=== PATIENT | female | born 1955 | race Caucasian/White ===

== ENCOUNTER 2017-07-25 11:46 | Emergency (ER) | payer OTHER ==
[2017-07-25 12:05] VITALS: RESP 16; TEMP 98.4
[2017-07-25] MEDS ORDERED: NS 1,000 ML IV ONE (13:07)
--- NOTE | 2017-07-25 13:07 | EDPHY ---
H & P Stated Complaint: Constipation Time Seen by Provider: 07/25/17 13:07 HPI/ROS: CHIEF COMPLAINT: Chronic constipation HISTORY OF PRESENT ILLNESS: The patient presents to the ED with complaints of several months of chronic constipation. She endorses symptoms of indigestion and mild nausea. She has not had vomiting. She denies fever or dysuria. She reports her last colonoscopy was 3 years ago and demonstrated only polyps. The patient has been using Dulcolax, Senokot and enemas as an outpatient. The patient presents the emergency department today requesting management of her ongoing constipation. She reports a prior surgical history no worthy for appendectomy and cholecystectomy. She complains only of mild abdominal pain REVIEW OF SYSTEMS: A comprehensive 10 point review of systems is otherwise negative aside from elements mentioned in the history of present illness. Source: Patient - Personal History Current Tetanus Diphtheria and Acellular Pertussis (TDAP): Yes - Medical/Surgical History Hx Asthma: No Hx Chronic Respiratory Disease: No Hx Diabetes: No Hx Cardiac Disease: No Hx Renal Disease: No Hx Cirrhosis: No Hx Alcoholism: No Hx HIV/AIDS: No Hx Splenectomy or Spleen Trauma: No Other PMH: Previous blocked bowels. Polylateral neuropathy. DM 2. Hypothyroid. - Social History Smoking Status: Current every day smoker - Physical Exam Exam: General Appearance: Alert, no distress Eyes: Pupils equal and round no pallor or injection ENT, Mouth: Mucous membranes moist Respiratory: There are no retractions, lungs are clear to auscultation Cardiovascular: Regular rate and rhythm Gastrointestinal: Protuberant, slight distension, normal bowel sounds Neurological: A&O, normal motor function, normal sensory exam, normal cranial nerves Skin: Warm and dry, no rashes Musculoskeletal: Neck is supple nontender Extremities: symmetrical, full range of motion Constitutional: Initial Vital Signs Temperature (C) 36.9 C 07/25/17 12:01 Heart Rate 75 07/25/17 12:01 Respiratory Rate 16 07/25/17 12:01 Blood Pressure 182/98 H 07/25/17 12:01 O2 Sat (%) 97 07/25/17 12:01 O2 Delivery Mode Room Air Allergies/Adverse Reactions: No Known Allergies Allergy (Unverified 07/25/17 12:05) Home Medications: Medication Instructions Recorded Peg 3350/Na Sulf,Bicarb,Cl/KCl 4,000 ml PO ONCE #1 btl 07/25/17 [Golytely (RX)] Medical Decision Making - Diagnostics Imaging Results: Imaging Impressions Abdomen X-Ray 07/25/17 13:08 Impression: Constipation. No evidence of bowel obstruction or pneumoperitoneum. ED Course/Re-evaluation: The patient presents to the emergency department with chronic constipation. She has been using number of [id number] laxatives without improvement. The patient has no evidence of an acute abdomen. The patient is afebrile and in no acute distress. The patient's laboratory studies including CBC and serum chemistries reassuring. The patient underwent serial examinations in the ED. She has no clinical evidence of a perforation or obstruction. The patient will be discharged home with a prescription to take GoLYTELY for her constipation. She is advised to follow up with her primary care provider and paint roller covers supervisor for any ongoing symptoms. Patient is advised to return to the ED for markedly worsening symptoms, fever, vomiting or other concerns. Differential Diagnosis: Differential diagnosis considered includes constipation, obstruction, perforation, ileus, pancreatitis - Data Points Laboratory Results: Laboratory Results 07/25/17 13:44 07/25/17 13:44 07/25/17 07/25/17 13:44 13:44 WBC 6.99 10^3/uL 10^3/uL (3.80-9.50) RBC 4.81 10^6/uL 10^6/uL (4.18-5.33) Hgb 15.1 g/dL g/dL (12.6-16.3) Hct 44.4 % % (38.0-47.0) MCV 92.3 fL fL (81.5-99.8) MCH 31.4 pg pg (27.9-34.1) MCHC 34.0 g/dL g/dL (32.4-36.7) RDW 13.9 % % (11.5-15.2) Plt Count 223 10^3/uL 10^3/uL (150-400) MPV 9.3 fL fL (8.7-11.7) Neut % (Auto) 60.8 % % (39.3-74.2) Lymph % (Auto) 32.2 % % (15.0-45.0) [place] % (Auto) 5.6 % % (4.5-13.0) Eos % (Auto) 0.4 % L % (0.6-7.6) Baso % (Auto) 0.9 % % (0.3-1.7) Nucleat RBC Rel Count 0.0 % % (0.0-0.2) Absolute Neuts (auto) 4.25 10^3/uL 10^3/uL (1.70-6.50) Absolute Lymphs (auto) 2.25 10^3/uL 10^3/uL (1.00-3.00) Absolute Monos (auto) 0.39 10^3/uL 10^3/uL (0.30-0.80) Absolute Eos (auto) 0.03 10^3/uL 10^3/uL (0.03-0.40) Absolute Basos (auto) 0.06 10^3/uL 10^3/uL (0.02-0.10) Absolute Nucleated RBC 0.00 10^3/uL 10^3/uL (0-0.01) Immature Gran % 0.1 % % (0.0-1.1) Immature Gran # 0.01 10^3/uL 10^3/uL (0.00-0.10) Sodium 145 mEq/L H mEq/L (134-144) Potassium 3.5 mEq/L mEq/L (3.5-5.2) Chloride 110 mEq/L mEq/L (97-110) Carbon Dioxide 23 mEq/l mEq/l (22-31) Anion Gap 12 mEq/L mEq/L (8-16) BUN 9 mg/dL mg/dL (7-23) Creatinine 0.8 mg/dL mg/dL (0.6-1.0) Estimated GFR > 60 Glucose 102 mg/dL H mg/dL (70-100) Calcium 9.8 mg/dL mg/dL (8.5-10.4) Total Bilirubin 0.3 mg/dL mg/dL (0.1-1.4) Conjugated Bilirubin 0.1 mg/dL mg/dL (0.0-0.5) Unconjugated Bilirubin 0.2 mg/dL mg/dL (0.0-1.1) AST 51 IU/L H IU/L (14-46) ALT 61 IU/L H IU/L (9-52) Alkaline Phosphatase 68 IU/L IU/L (38-126) Total Protein 7.8 g/dL g/dL (6.3-8.2) Albumin 4.4 g/dL g/dL (3.5-5.0) Lipase 108 IU/L IU/L (23-300) Medications Given: Discontinued Medications Famotidine (Pepcid) 20 mg IVP EDNOW ONE Stop: 07/25/17 14:34 Last Admin: 07/25/17 14:37 Dose: 20 mg Sodium Chloride (Ns) 1,000 mls @ 0 mls/hr IV EDNOW ONE; Wide Open PRN Reason: Protocol Stop: 07/25/17 13:08 Last Admin: 07/25/17 13:42 Dose: 1,000 mls Ondansetron HCl (Zofran) 4 mg IVP EDNOW ONE Stop: 07/25/17 14:34 Last Admin: 07/25/17 14:37 Dose: 4 mg Departure - Departure Disposition: Home, Routine, Self-Care Clinical Impression: Constipation Condition: Good Instructions: Constipation (ED) Additional Instructions: 1. Please take GoLYTELY as directed. 2. Please follow up with your primary care provider and your regular paint roller covers supervisor for any ongoing symptoms of constipation. 3. Please return to the ED for markedly worsening symptoms, high fever or other concerns. Referrals: Lila Reagan MD [Primary Care Provider] - As per Instructions
[2017-07-25 13:57] LABS: % IMMATURE GRANULYOCYTES 0.1 % (0.0-1.1); ABSOLUTE IMMATURE GRANULOCYTES 0.01 10^3/uL (0.00-0.10); ADD DIFF? NO; ADD MORPH? NO; ADD SCAN? NO; ATYPICAL LYMPHOCYTE FLAG 10 (0-99); FRAGMENT RBC FLAG 0 (0-99); HEMATOCRIT 44.4 % (38.0-47.0); HEMOGLOBIN 15.1 g/dL (12.6-16.3); LEFT SHIFT FLG 0 (0-99); LIPEMIA HEMOLYSIS FLAG 90 (0-99); MEAN CELL HEMOGLOBIN 31.4 pg (27.9-34.1); MEAN CELL VOLUME 92.3 fL (81.5-99.8); MEAN PLATELET VOLUME 9.3 fL (8.7-11.7); PLATELET CLUMPS FLAG 0 (0-99); PLATELET COUNT 223 10^3/uL (150-400); RED BLOOD CELL COUNT 4.81 10^6/uL (4.18-5.33); RED CELL DISTRIBUTION WIDTH 13.9 % (11.5-15.2)
[2017-07-25 14:11] LABS: ALANINE AMINOTRANSFERASE 61 IU/L (9-52); ALBUMIN 4.4 g/dL (3.5-5.0); ALKALINE PHOSPHATASE 68 IU/L (38-126); ANION GAP 12 mEq/L (8-16); ASPARTATE AMINOTRANSFERASE 51 IU/L (14-46); BILIRUBIN,TOTAL 0.3 mg/dL (0.1-1.4); BILIRUBIN-CONJUGATED 0.1 mg/dL (0.0-0.5); BILIRUBIN-UNCONJUGATED 0.2 mg/dL (0.0-1.1); CALCIUM 9.8 mg/dL (8.5-10.4); CARBON DIOXIDE 23 mEq/l (22-31); CHLORIDE 110 mEq/L (97-110); CREATININE 0.8 mg/dL (0.6-1.0); GLOMERULAR FILTRATION RATE > 60; GLUCOSE 102 mg/dL (70-100); POTASSIUM 3.5 mEq/L (3.5-5.2); SODIUM 145 mEq/L (134-144); TOTAL PROTEIN 7.8 g/dL (6.3-8.2)
[2017-07-25] MEDS ORDERED: FAMOTIDINE 20 MG/2 ML SDV IVP ONE (14:33)
[2017-07-25] MEDS ORDERED: ONDANSETRON 4 MG/2 ML VIAL IVP ONE (14:33)
[2017-07-25 15:15] VITALS: BP 118/80; PULSE 76; O2SAT 98
== END 2017-07-25 15:16 | disposition home or self-care (01) ==
DX: K59.00 Constipation, unspecified (principal); F17.200 Nicotine dependence, unspecified, uncomplicated; E86.9 Volume depletion, unspecified
CPT/HCPCS: 96374; J2405

== ENCOUNTER 2017-08-06 17:29 | Emergency (ER) | payer OTHER ==
[2017-08-06 17:40] VITALS: TEMP 97.9
[2017-08-06] MEDS ORDERED: NS 1,000 ML IV ONE (18:03)
--- NOTE | 2017-08-06 18:09 | EDPHY ---
H & P Time Seen by Provider: 08/06/17 17:42 HPI/ROS: CHIEF COMPLAINT: Chronic constipation, "heartburn " HISTORY OF PRESENT ILLNESS: 62-year-old female presents to the emergency department by private vehicle complaining of severe chronic constipation. The patient states that she has not had a bowel movement in over 4 weeks. She has a history of severe peripheral neuropathy involving her upper and lower extremities and is on chronic opiates for this. She has seen GI for this. She has seen her primary care provider multiple times. She states that her pain today is an "8/10". She states that the pain in her bowels is now causing severe "heartburn ". No vomiting. She has very little appetite. She states that she is urinating normally however. No difficulty breathing. No reported trauma. She states that she has not passed any gas. She does state that she is belching a lot. REVIEW OF SYSTEMS: Constitutional: No fever, no chills. Eyes: No double or blurry vision. ENT: No sore throat. Respiratory: No cough, no shortness of breath. Cardiac: No chest pain. Gastrointestinal: Abdominal pain as above. No vomiting or diarrhea. Genitourinary: No dysuria. Musculoskeletal: No neck or back pain. Skin: No rashes. Neurological: No headache. Past Medical/Surgical History: Peripheral neuropathy, type 2 diabetic, hypothyroidism, chronic constipation Social History: Smoking Status: Current every day smoker Physical Exam: General Appearance: Alert, no distress. Vital signs are stable. Eyes: Pupils equal and round. Extraocular motions are all intact. ENT: Mouth: Mucous membranes slightly dry. Respiratory: No wheezing, rhonchi, or rales, lungs are clear to auscultation. Cardiovascular: Regular rate and rhythm. Gastrointestinal: Abdomen is soft and nontender, no masses, no rebound or guarding, bowel sounds normal. Neurological: Alert and oriented x 3, cranial nerves II through XII grossly intact Skin: Hands are very dry. Bilateral hands or erythematous. Warm and dry, no rashes. Musculoskeletal: Nontender to palpate along the cervical, thoracic or lumbar spine. Neck is supple. Extremities: Her fingers bilaterally are held in slight flexion. This is chronic for her. Psychiatric: Patient is oriented X 3, there is no agitation. Constitutional: Initial Vital Signs Temperature (C) 36.6 C 08/06/17 17:37 Heart Rate 67 08/06/17 17:37 Respiratory Rate 19 08/06/17 17:37 Blood Pressure 141/76 H 08/06/17 17:37 O2 Sat (%) 96 08/06/17 17:37 O2 Delivery Mode Room Air Allergies/Adverse Reactions: No Known Allergies Allergy (Unverified 07/25/17 12:05) Home Medications: Medication Instructions Recorded Peg 3350/Na Sulf,Bicarb,Cl/KCl 4,000 ml PO ONCE #1 btl 07/25/17 [Golytely (RX)] Medical Decision Making - Diagnostics Imaging Results: Imaging Impressions Abdomen CT 08/06/17 19:03 Impression: 1. Probable subacute mild compression fracture of T10, without significant retropulsion. 2. Indeterminate left adrenal nodule. Adrenal protocol CT or MRI could be performed for further evaluation. 3. Constipation. 4. Biliary dilatation, likely related to prior cholecystectomy. 5. Additional findings, as above. Findings discussed with Lorie Deluna on August 06, 2017 at 1958. Imaging: Discussed imaging studies w/ call center supervisor Radiologist ED Course/Re-evaluation: 62-year-old female presents to the emergency department with chronic constipation. The patient states "I have tried everything ". She also tells me that she saw her doctor today who advised that she come to the emergency department for possible dehydration and electrolyte abnormality. Laboratory studies were all within normal limits including CBC, chemistries and urinalysis. Patient did receive IV normal saline. CT imaging of the abdomen and pelvis with IV contrast reveals no evidence of obstruction. Constipation is noted. I do not think this patient needs to be admitted to the hospital. I did also speak with Dr. Leighton Neal, on-call palaeontologist, who agreed with restarting the patient on GoLYTELY. The patient is scheduled for colonoscopy in 1 week and I explained to the patient that she could do her bowel prep sooner to see if that may help clean her bowels out. The patient does not have an acute abdomen. The patient is very tearful and frustrated that she came to the emergency department since "we are doing nothing ". I explained to the patient reassured her that she does not require surgery. She did not have a bowel obstruction. She will be discharged home with close follow-up with primary care provider as well as palaeontologist. Patient is also complaining of "heartburn ". EKG is normal. Troponin is negative. Patient was given IV Pepcid 20 mg. She also requested a prescription for the same. I spoke with Dr. Rebecca Collier, on-call physician at [facility] where her primary care provider is, to inform her that the patient had a normal CT scan other than constipation noted and that she will not be admitted to the hospital as her laboratory studies were unremarkable and she does not have an acute abdomen. Dr. Rebecca Collier agrees and will put a note in the patient's chart. Differential Diagnosis: Including but not limited to chronic constipation, bowel obstruction, dehydration, electrolyte abnormality - Data Points Laboratory Results: Laboratory Results 08/06/17 18:10 08/06/17 18:10 08/06/17 08/06/17 08/06/17 18:20 18:16 18:10 WBC RBC Hgb Hct MCV MCH MCHC RDW Plt Count MPV Neut % (Auto) Lymph % (Auto) [place] % (Auto) Eos % (Auto) Baso % (Auto) Nucleat RBC Rel Count Absolute Neuts (auto) Absolute Lymphs (auto) Absolute Monos (auto) Absolute Eos (auto) Absolute Basos (auto) Absolute Nucleated RBC Immature Gran % Immature Gran # Sodium 143 mEq/L mEq/L (134-144) Potassium 4.4 mEq/L mEq/L (3.5-5.2) Chloride 110 mEq/L mEq/L (97-110) Carbon Dioxide 23 mEq/l mEq/l (22-31) Anion Gap 10 mEq/L mEq/L (8-16) BUN 21 mg/dL mg/dL (7-23) Creatinine 0.9 mg/dL mg/dL (0.6-1.0) Estimated GFR > 60 Glucose 70 mg/dL mg/dL (70-100) Calcium 9.8 mg/dL mg/dL (8.5-10.4) Troponin I < 0.012 ng/mL ng/mL (0.000-0.034) Urine Color PALE YELLOW Urine Appearance CLEAR Urine pH 7.0 (5.0-7.5) Ur Specific [place] 1.008 (1.002-1.030) Urine Protein NEGATIVE (NEGATIVE) Urine Ketones NEGATIVE (NEGATIVE) Urine Blood NEGATIVE (NEGATIVE) Urine Nitrate NEGATIVE (NEGATIVE) Urine Bilirubin NEGATIVE (NEGATIVE) Urine Urobilinogen NEGATIVE EU EU (0.2-1.0) Ur Leukocyte Esterase TRACE H (NEGATIVE) Urine RBC 1-3 /hpf /hpf (0-3) Urine WBC 3-5 /hpf H /hpf (0-3) Ur Epithelial Cells TRACE /lpf /lpf (NONE-1+) Hyaline Casts 1-5 /lpf /lpf (0-1) Urine Mucus TRACE /lpf /lpf (NONE-1+) Urine Glucose NEGATIVE (NEGATIVE) 08/06/17 18:10 WBC 8.42 10^3/uL 10^3/uL (3.80-9.50) RBC 4.45 10^6/uL 10^6/uL (4.18-5.33) Hgb 14.1 g/dL g/dL (12.6-16.3) Hct 41.7 % % (38.0-47.0) MCV 93.7 fL fL (81.5-99.8) MCH 31.7 pg pg (27.9-34.1) MCHC 33.8 g/dL g/dL (32.4-36.7) RDW 13.5 % % (11.5-15.2) Plt Count 230 10^3/uL 10^3/uL (150-400) MPV 9.3 fL fL (8.7-11.7) Neut % (Auto) 52.8 % % (39.3-74.2) Lymph % (Auto) 38.0 % % (15.0-45.0) [place] % (Auto) 6.5 % % (4.5-13.0) Eos % (Auto) 1.5 % % (0.6-7.6) Baso % (Auto) 1.1 % % (0.3-1.7) Nucleat RBC Rel Count 0.0 % % (0.0-0.2) Absolute Neuts (auto) 4.44 10^3/uL 10^3/uL (1.70-6.50) Absolute Lymphs (auto) 3.20 10^3/uL H 10^3/uL (1.00-3.00) Absolute Monos (auto) 0.55 10^3/uL 10^3/uL (0.30-0.80) Absolute Eos (auto) 0.13 10^3/uL 10^3/uL (0.03-0.40) Absolute Basos (auto) 0.09 10^3/uL 10^3/uL (0.02-0.10) Absolute Nucleated RBC 0.00 10^3/uL 10^3/uL (0-0.01) Immature Gran % 0.1 % % (0.0-1.1) Immature Gran # 0.01 10^3/uL 10^3/uL (0.00-0.10) Sodium Potassium Chloride Carbon Dioxide Anion Gap BUN Creatinine Estimated GFR Glucose Calcium Troponin I Urine Color Urine Appearance Urine pH Ur Specific [place] Urine Protein Urine Ketones Urine Blood Urine Nitrate Urine Bilirubin Urine Urobilinogen Ur Leukocyte Esterase Urine RBC Urine WBC Ur Epithelial Cells Hyaline Casts Urine Mucus Urine Glucose Medications Given: Discontinued Medications Famotidine (Pepcid) 20 mg IVP EDNOW ONE Stop: 08/06/17 20:34 Last Admin: 08/06/17 20:51 Dose: 20 mg Sodium Chloride (Ns) 1,000 mls @ 0 mls/hr IV ONCE ONE PRN Reason: Wide Open Stop: 08/06/17 18:04 Last Admin: 08/06/17 18:21 Dose: 1,000 mls Polyethylene Glycol/Electrolytes (Gavilyte - G) 4,000 ml PO ONCE ONE Stop: 08/06/17 20:34 Last Admin: 08/06/17 21:03 Dose: 4,000 ml Departure - Departure Disposition: Home, Routine, Self-Care Clinical Impression: Constipation Qualifiers: Constipation type: unspecified constipation type Qualified Code(s): K59.00 - Constipation, unspecified Condition: Good Instructions: Constipation (ED), High Fiber Diet (ED) Additional Instructions: You should take your GoLYTELY as prescribed. Pepcid as needed for symptoms of heartburn. Referrals: Leighton Neal MD [Medical Doctor] - As per Instructions (Mirror Installer that we spoke with while you are in the hospital.) Lila Reagan MD [Primary Care Provider] - 1 day without fail
[2017-08-06 18:21] LABS: % IMMATURE GRANULYOCYTES 0.1 % (0.0-1.1); ABSOLUTE IMMATURE GRANULOCYTES 0.01 10^3/uL (0.00-0.10); ADD DIFF? NO; ADD MORPH? NO; ADD SCAN? NO; ATYPICAL LYMPHOCYTE FLAG 10 (0-99); FRAGMENT RBC FLAG 0 (0-99); HEMATOCRIT 41.7 % (38.0-47.0); HEMOGLOBIN 14.1 g/dL (12.6-16.3); LEFT SHIFT FLG 0 (0-99); LIPEMIA HEMOLYSIS FLAG 90 (0-99); MEAN CELL HEMOGLOBIN 31.7 pg (27.9-34.1); MEAN CELL HEMOGLOBIN CONCENTR. 33.8 g/dL (32.4-36.7); MEAN CELL VOLUME 93.7 fL (81.5-99.8); MEAN PLATELET VOLUME 9.3 fL (8.7-11.7); PLATELET CLUMPS FLAG 10 (0-99); PLATELET COUNT 230 10^3/uL (150-400); RED BLOOD CELL COUNT 4.45 10^6/uL (4.18-5.33); RED CELL DISTRIBUTION WIDTH 13.5 % (11.5-15.2)
[2017-08-06 18:32] LABS: COLOR PALE YELLOW; LEUKOCYTE ESTERASE,URINE TRACE (NEGATIVE); NITRITE,URINE NEGATIVE (NEGATIVE)
[2017-08-06 18:34] LABS: MUCUS TRACE /lpf (NONE-1+)
--- NOTE | 2017-08-06 18:37 | CPEKG ---
Heart Rate: 57 RR Interval: 1053 P-R Interval: 168 QRSD Interval: 70 QT Interval: 412 QTC Interval: 401 P [place]: 80 QRS [place]: 63 T Wave [place]: 63 EKG Severity - ABNORMAL ECG - EKG Impression: SINUS RHYTHM EKG Impression: RIGHT ATRIAL ABNORMALITY Electronically Signed By: Jim Espinoza 07-Aug-2017 06:58:54
[2017-08-06 18:44] LABS: ANION GAP 10 mEq/L (8-16); CALCIUM 9.8 mg/dL (8.5-10.4); CARBON DIOXIDE 23 mEq/l (22-31); CHLORIDE 110 mEq/L (97-110); CREATININE 0.9 mg/dL (0.6-1.0); GLOMERULAR FILTRATION RATE > 60; GLUCOSE 70 mg/dL (70-100); POTASSIUM 4.4 mEq/L (3.5-5.2); SODIUM 143 mEq/L (134-144)
[2017-08-06] MEDS ORDERED: IOPAMIDOL (ISOVUE-300) 100 ML BTL ONE (19:09)
[2017-08-06] MEDS ORDERED: FAMOTIDINE 20 MG/2 ML SDV IVP ONE (20:33)
[2017-08-06] MEDS ORDERED: PEG 3350/NA SULF,BICARB,CL/KCL (GAVILYTE-G) 4000 ML BTL PO ONE (20:33)
[2017-08-06 20:51] VITALS: BP 157/95; PULSE 68; RESP 17; O2SAT 92
== END 2017-08-06 21:12 | disposition home or self-care (01) ==
DX: K59.00 Constipation, unspecified (principal); E11.9 Type 2 diabetes mellitus without complications; F17.200 Nicotine dependence, unspecified, uncomplicated
CPT/HCPCS: 96374; Q9967

== ENCOUNTER 2017-09-20 14:49 | Emergency (ER) | payer OTHER ==
[2017-09-20] MEDS ORDERED: NS 500 ML IV ONE (15:03)
--- NOTE | 2017-09-20 15:03 | EDPHY ---
H & P Stated Complaint: mechanical fall, hit head, no LOC - Personal History Current Tetanus Diphtheria and Acellular Pertussis (TDAP): Yes - Medical/Surgical History Hx Asthma: No Hx Chronic Respiratory Disease: No Hx Diabetes: No Hx Cardiac Disease: No Hx Renal Disease: No Hx Cirrhosis: No Hx Alcoholism: No Hx HIV/AIDS: No Hx Splenectomy or Spleen Trauma: No Other PMH: Previous blocked bowels. Polylateral neuropathy. DM 2. Hypothyroid. frequent falls - Social History Smoking Status: Current every day smoker Constitutional: Initial Vital Signs Temperature (C) 36.7 C 09/20/17 14:51 Heart Rate 71 09/20/17 14:51 Respiratory Rate 18 09/20/17 14:51 Blood Pressure 167/102 H 09/20/17 14:51 O2 Sat (%) 91 L 09/20/17 14:51 O2 Delivery Mode Room Air Allergies/Adverse Reactions: No Known Allergies Allergy (Verified 09/20/17 14:55) Home Medications: Medication Instructions Recorded Peg 3350/Na Sulf,Bicarb,Cl/KCl 4,000 ml PO ONCE #1 btl 07/25/17 [Golytely (RX)] Glyburide 09/20/17 Ivig 09/20/17 Synthroid 09/20/17 traZODone 09/20/17 Medical Decision Making - Diagnostics Imaging Results: Imaging Impressions Head CT 09/20/17 15:03 Impression: 1. No acute hemorrhage. 2. No skull fracture. 3. Severe microvascular ischemic gliosis in the white matter bilateral cerebral hemispheres. Findings and recommendations discussed with Emergency Department physician, Elio Mcclelland MD at 1529 hour, 09/20/2017. Final report concurs with initial preliminary interpretation. Procedures: My involvement of the care this patient is solely for the procedure. Please see the note of Dr. Mcclelland for all other aspects of care. PROCEDURE: Laceration repair Consent: Verbal Location: Scalp Length of repair: two 1 cm lacerations with skin bridge of half a cm Complexity: Simple Layer involvement: Single Anesthesia: Local per 1% lidocaine with epinephrine. 5 mL Irrigation: Extensive Debridement: None Procedure description: Following good anesthesia, the wound was copiously irrigated. Wound bed was explored with a sterile glove, and there is no foreign body noted. No damage to the g[place]. Wound borders were approximated well with good hemostasis. Tolerated well without complication. Suture/Staple material: 2 hans Wound care: Routine as discussed Suture/Staple removal: 10 Days (Matti Adam) ED Course/Re-evaluation: CHIEF COMPLAINT: Fall and head lac HISTORY OF PRESENT ILLNESS: 62-year-old female with a longstanding history of peripheral neuropathy and peripheral weakness. Unfortunately she falls fairly frequently. She fell a couple of days ago and sprained her right ankle. She did hit her head at that time. She denied loss of consciousness nausea vomiting or any new neurologic deficits. Today she was out for the 1st time since that fall and was loading groceries into the back of her car and fell over and hit the back of her head. Once again she denies loss of consciousness. She denies nausea vomiting. She is having some pain. She does state that she has some blurry vision since she hit her head in route. She also received fentanyl and ketamine in route for pain control. It REVIEW OF SYSTEMS: A 10 point review of systems was performed and is negative with the exception of the elements mentioned in the history of present illness. PHYSICAL EXAM: HR, BP, O2 Sat, RR. Temp noted General Appearance: Alert, well hydrated, appropriate, and non-toxic appearing. Head: Atraumatic without scalp tenderness or obvious injury Eyes: Pupils equal, round, reactive to light and accommodation, EOMI, no trauma , no injection. Ears: Clear bilaterally, no perforation, normal landmarks Nose: Atraumatic, no rhinorrhea, clear. Throat: There is no erythema or exudates, no lesions, normal tonsils, mucus membranes moist. Neck: Supple, 2+ carotid upstroke, nontender, no lymphadenopathy. Respiratory: No retractions, no distress, no wheezes, and no accessory muscle use. Lungs are clear to auscultation bilaterally. Cardiovascular: Regular rate and rhythm, no murmurs, rubs, or gallops. Bilateral carotid, radial, dorsalis pedis, and posterior tibial pulses intact. Good capillary refill all extremities. Gastrointestinal: Abdomen is soft, nontender, non-distended, no masses, no rebound, no guarding, no peritoneal signs. Musculoskeletal: Normal active ROM of all extremities, atraumatic. Neurological: Alert, appropriate, and interactive. The patient has normal DTRs and non-focal cranial nerves, motor, sensory, and cerebellar exam. Skin: Superficial skin laceration. Occiput. It will require suturing and Matti Adam will perform. No rashes, good turgor, no nodules on palpation. Past medical history: Severe peripheral neuropathy over 20 years, hearing loss Past surgical history: Noncontributory Family history: Noncontributory Social history: Single, lives at home drive his car takes care of herself, does not abuse tobacco drugs or alcohol DIAGNOSTICS/PROCEDURES/CRITICAL CARE TIME: Study: CT of the Head Indication: trauma Results: CT scan of the head was obtained. The results of the study are normal. The study was read by the radiologist. I viewed the images myself on the PACS system. DIFFERENTIAL DIAGNOSIS: The differential diagnosis for the patient's fall included but was not limited to [vasovagal syncope, arrhythmia, dehydration, cardiogenic causes, neurogenic causes, mechanical causes, and blood loss.] MEDICAL DECISION MAKING: This patient states that she had a mechanical fall because she lost balance. Unfortunately she loses balance frequently. I have some concern that she hit her head a couple of days ago and in addition hit her head again today with a laceration. I would like to evaluate her for subdural hematoma or some other intracranial injury causing her to be off balance today from the prior fall. Additionally, she has some pain in her right ankle and I will do x-ray. The laceration will be repaired by Matti Adam. CT negative. Neurologic exam remains normal. Patient will be discharged with customary return and follow up care instructions. She is comfortable with this plan. (Elio Mcclelland) - Data Points Laboratory Results: Laboratory Results 09/20/17 14:52 09/20/17 14:52 09/20/17 09/20/17 14:52 14:52 WBC 8.27 10^3/uL 10^3/uL (3.80-9.50) RBC 4.29 10^6/uL 10^6/uL (4.18-5.33) Hgb 14.0 g/dL g/dL (12.6-16.3) Hct 41.5 % % (38.0-47.0) MCV 96.7 fL fL (81.5-99.8) MCH 32.6 pg pg (27.9-34.1) MCHC 33.7 g/dL g/dL (32.4-36.7) RDW 14.7 % % (11.5-15.2) Plt Count 222 10^3/uL 10^3/uL (150-400) MPV 9.6 fL fL (8.7-11.7) Neut % (Auto) 56.8 % % (39.3-74.2) Lymph % (Auto) 34.2 % % (15.0-45.0) [place] % (Auto) 5.9 % % (4.5-13.0) Eos % (Auto) 1.6 % % (0.6-7.6) Baso % (Auto) 1.1 % % (0.3-1.7) Nucleat RBC Rel Count 0.0 % % (0.0-0.2) Absolute Neuts (auto) 4.70 10^3/uL 10^3/uL (1.70-6.50) Absolute Lymphs (auto) 2.83 10^3/uL 10^3/uL (1.00-3.00) Absolute Monos (auto) 0.49 10^3/uL 10^3/uL (0.30-0.80) Absolute Eos (auto) 0.13 10^3/uL 10^3/uL (0.03-0.40) Absolute Basos (auto) 0.09 10^3/uL 10^3/uL (0.02-0.10) Absolute Nucleated RBC 0.00 10^3/uL 10^3/uL (0-0.01) Immature Gran % 0.4 % % (0.0-1.1) Immature Gran # 0.03 10^3/uL 10^3/uL (0.00-0.10) Sodium 144 mEq/L mEq/L (134-144) Potassium 4.4 mEq/L mEq/L (3.5-5.2) Chloride 110 mEq/L mEq/L (97-110) Carbon Dioxide 23 mEq/l mEq/l (22-31) Anion Gap 11 mEq/L mEq/L (8-16) BUN 18 mg/dL mg/dL (7-23) Creatinine 1.0 mg/dL mg/dL (0.6-1.0) Estimated GFR 56 Glucose 101 mg/dL H mg/dL (70-100) Calcium 8.9 mg/dL mg/dL (8.5-10.4) Medications Given: Discontinued Medications Sodium Chloride (Ns) 500 mls @ 1,000 mls/hr IV EDNOW ONE PRN Reason: Protocol Stop: 09/20/17 15:32 Last Admin: 09/20/17 15:34 Dose: Not Given Departure - Departure Disposition: Home, Routine, Self-Care Clinical Impression: Fall Qualifiers: Encounter type: initial encounter Qualified Code(s): W19.XXXA - Unspecified fall, initial encounter Laceration of head Qualifiers: Encounter type: initial encounter Location of open wound of head: scalp Foreign body presence: without foreign body Qualified Code(s): S01.01XA - Laceration without foreign body of scalp, initial encounter Condition: Good Instructions: Laceration (ED) Additional Instructions: Return for suture removal in 10 days. Follow up with your primary care provider in 2-3 days. Return to the ED for worsening of condition. Referrals: Haim Redmond MD [Medical Doctor] - As per Instructions
[2017-09-20 15:09] LABS: PLATELET COUNT 222 10^3/uL (150-400)
--- NOTE | 2017-09-20 15:48 | CPEKG ---
Heart Rate: 63 RR Interval: 952 P-R Interval: 172 QRSD Interval: 78 QT Interval: 412 QTC Interval: 422 P [place]: 78 QRS [place]: 71 T Wave [place]: 69 EKG Severity - ABNORMAL ECG - EKG Impression: SINUS RHYTHM EKG Impression: RIGHT ATRIAL ABNORMALITY Electronically Signed By: Elio Mcclelland 20-Sep-2017 21:05:19
[2017-09-20 16:23] VITALS: BP 141/80; PULSE 69; RESP 14; TEMP 97.7; O2SAT 95
== END 2017-09-20 16:23 | disposition home or self-care (01) ==
LOC: EDUNIT#
PROC: 0HQ0XZZ Repair Scalp Skin, External Approach (ICD-10-PCS; principal; 2017-09-20)
DX: S01.01XA Laceration without foreign body of scalp, initial encounter (principal); E11.9 Type 2 diabetes mellitus without complications; F17.200 Nicotine dependence, unspecified, uncomplicated; W01.198A Fall on same level from slipping, tripping and stumbling with subsequent striking against other object, initial encounter

== ENCOUNTER → 2017-12-31 | Outpatient (CLI) | payer OTHER | LOC: FIMAGING 09:58 | PROVIDERS: ATTEND Otolaryngology | DX: R51 Headache (principal); R90.82 White matter disease, unspecified; E11.9 Type 2 diabetes mellitus without complications; I10 Essential (primary) hypertension ==

== ENCOUNTER 2018-07-07 09:06 | Day surgery (SDC) | payer OTHER ==
[2018-07-07] MEDS ORDERED: LR 1,000 ML IV ONE (10:11)
[2018-07-07] MEDS ORDERED: fentaNYL 100 MCG/2 ML INJ IVP PRN (10:32)
[2018-07-07] MEDS ORDERED: DEXAMETHASONE 4 MG/ML VIAL IVP PRN (10:32)
[2018-07-07] MEDS ORDERED: NALOXONE HCL 0.4 MG/ML INJ IVP PRN (10:32)
[2018-07-07] MEDS ORDERED: oxyCODONE IR 5 MG TAB PO PRN (10:32)
[2018-07-07] MEDS ORDERED: ONDANSETRON 4 MG/2 ML VIAL IVP PRN (10:32)
[2018-07-07] MEDS ORDERED: LR 500 ML IV PRN (10:32)
--- NOTE | 2018-07-07 10:33 | PDANEPAE ---
ANE History of Present Illness screening EGD ANE Past Medical History - Cardiovascular History Hx Hypertension: Yes Hx Arrhythmias: No Hx Chest Pain: No Hx Coronary Artery / Peripheral Vascular Disease: No Hx CHF / Valvular Disease: No Hx Palpitations: No Cardiovascular History Comment: HYPERLIPIDEMIA - Pulmonary History Hx COPD: No Hx Asthma/Reactive Airway Disease: No Hx Recent Upper Respiratory Infection: No Hx Oxygen in Use at Home: No Hx Sleep Apnea: No Sleep Apnea Screening Result - Last Documented: Negative - Neurologic History Hx Cerebrovascular Accident: No Hx Seizures: No Hx Dementia: No Neurologic History Comment: OCCAS MIGRAINES. PERIPHERAL NEUROPATHY. CONCUSSION IN PAST. DDD - CERVICAL & LUMBAR - Endocrine History Hx Diabetes: No Endocrine History Comment: THYROIDECTOMY - Renal History Hx Renal Disorders: No Renal History Comment: INTERSTITIAL CYSTITIS - Liver History Hx Hepatic Disorders: No Hepatic History Comment: GRUPO - Neurological & Psychiatric Hx Hx Neurological and Psychiatric Disorders: Yes Neurological / Psychiatric History Comment: ANXIETY/DEPRESSION - Cancer History Hx Cancer: No - Congenital Disorder History Hx Congenital Disorders: No - GI History Hx Gastrointestinal Disorders: Yes Gastrointestinal History Comment: CONSTIPATION. STOMACH PAIN. GERD. COLON POLYPS - Other Health History Other Health History: CHRONIC INFLAMMATORY DEMYELINATING POLY NEURITIS - MONTHLY IV IG INJECTIONS - Chronic Pain History Chronic Pain: Yes (NECK, BACK, LEGS & ARMS) - Surgical History Prior Surgeries: CERVICAL FUSION. LUMBAR SURG. COLONOSCOPIES. ELIGIO JEAN-PIERRE. HYSTERECTOMY. L SHOULDER REPLACEMENT. ELBOW FX R. CHOLECYSTECTOMY. APPENDECTOMY. THYROIDECTOMY ANE Review of Systems Review of Systems: - Exercise capacity METS (RN): 4 METS ANE Patient History - Allergies Allergies/Adverse Reactions: No Known Allergies Allergy (Verified 09/20/17 14:55) - Home Medications Home Medications: Glyburide 09/20/17 [Last Taken Unknown] Synthroid 09/20/17 [Last Taken 07/06/18] traZODone 09/20/17 [Last Taken Unknown] Amitiza 06/09/18 [Last Taken 07/06/18] Baclofen 06/09/18 [Last Taken 07/06/18] Benadryl 06/09/18 [Last Taken 07/06/18] Glyburide 06/09/18 [Last Taken 07/06/18] Herbals/Supplements -Info Only 06/09/18 [Last Taken Unknown] Hydroxyzine HCl 06/09/18 [Last Taken 07/06/18] Immune Globulin 06/09/18 [Last Taken 07/02/18] Levothyroxine 06/09/18 [Last Taken 07/06/18] Lisinopril 06/09/18 [Last Taken 07/06/18] Lovastatin 06/09/18 [Last Taken 07/06/18] Oxycodone HCl 06/09/18 [Last Taken 07/06/18] Propranolol HCl 06/09/18 [Last Taken 07/06/18] Ranitidine HCl 06/09/18 [Last Taken 07/06/18] Sertraline HCl 06/09/18 [Last Taken 07/06/18] Topiramate 06/09/18 [Last Taken 07/06/18] Trazodone HCl 06/09/18 [Last Taken 07/06/18] - NPO status NPO Since - Liquids (Date): 07/06/18 NPO Since - Liquids (Time): 21:00 NPO Since - Solids (Date): 07/06/18 NPO Since - Solids (Time): 18:30 - Smoking Hx Smoking Status: Current every day smoker - Family Anes Hx Family Hx Anesthesia Complications: NEG ANE Labs/Vital Signs - Vital Signs Blood Pressure: 190/86 Heart Rate: 63 Respiratory Rate: 16 O2 Sat (%): 91 Height: 175.26 cm Weight: 57.606 kg ANE Physical Exam - Airway Neck exam: decreased ROM Mallampati Score: Class 3 Mouth exam: dentures - Pulmonary Pulmonary: no respiratory distress - Cardiovascular Cardiovascular: regular rate and rhythym - ASA Status ASA Status: III (significant generalized musculoskeletal limitations from neuropathy noted on exam) ANE Anesthesia Plan Anesthesia Plan: GA with mask
[2018-07-07] MEDS ORDERED: LIDOCAINE 2% 5 ML SDV ONE (10:34)
[2018-07-07] MEDS ORDERED: fentaNYL 100 MCG/2 ML INJ ONE (10:34)
[2018-07-07] MEDS ORDERED: PROPOFOL/EMULSION 500 MG/50 ML BOTTLE IV ONE (10:34)
--- NOTE | 2018-07-07 10:52 | PDGENHP ---
History & Physical Chief Complaint: GERD History of Present Illness: GERD refractory to PPI and H2 receptor therapy. Intermittent solid food dysphagia. Demylinating neuropathy Pertinent Past, Social, Family History: PMH: Idiopathic demylinating polyneuropathy. SH: No tobacco. No ETOH. FH: No colon cancer Relevant Physical Exam: NAD. CTA B/L. RRR. No m/r/g. GI: soft. NABS. NT/ND. Neuro: diffuse muscle atrophy and contraction deformities to hands Cardiorespiratory Assessment: ASA III. EGD for GERD and intermittent solid food dysphagia
--- NOTE | 2018-07-07 11:19 | GIREPORT ---
[facility] Surgical Services - Endoscopy Department Patient Name: Jaye Goss Procedure Date: 07/07/2018 10:42 AM Patient Type: Outpatient Attending MD/ ER Physician: Isaac Arevalo MD Procedure: Upper GI endoscopy Indications: Dysphagia, Heartburn Providers: Isaac Arevalo MD Medicines: Propofol per Anesthesia Complications: No immediate complications. Description of Procedure: After obtaining informed consent, the endoscope was passed under direct vision. Throughout the procedure, the patient's blood pressure, pulse, and oxygen saturations were monitored continuously. The Endoscope was intro duced through the mouth, and advanced to the second part of duodenum. [facility] accomplished without difficulty. The patient tolerated th e procedure well. Findings: Patchy, white plaques were found in the upper third of the esophagus an d in the middle third of the esophagus. Biopsies were taken with a cold forc eps for histology. Mucosal changes including ringed esophagus were found in the middle thi rd of the esophagus and in the lower third of the esophagus. Biopsies were obtained from the proximal and distal esophagus with cold forceps for histology of suspected eosinophilic esophagitis. Diffuse moderate mucosal changes characterized by congestion, erythema and hemorrhagic appearance were found in the entire examined stomach. Biops ies were taken with a cold forceps for histology. Lymphangiectasia was present in the first portion of the duodenum and i n the second portion of the duodenum. Biopsies for histology were taken with a cold forceps for evaluation of celiac disease. Estimated Blood Loss: Estimated blood loss: none. Post Op Diagnosis: - Esophageal plaques were found, consistent with candidiasis. Biopsied. - Esophageal mucosal changes suggestive of eosinophilic esophagitis. Biopsied. - Congested, erythematous and hemorrhagic appearing mucosa in the stoma ch. Biopsied. - Duodenal mucosal lymphangiectasia. - I suspect her symptoms are due to esophageal candidiasis and possible eosinophilic esophagitis. Recommendation: - Await pathology results. - Diflucan (fluconazole) 100 mg PO daily for 2 weeks. - Stop ranitidine. - Use Protonix (pantoprazole) 40 mg PO BID. - Return to GI office as previously scheduled. - Soft diet. - Repeat upper endoscopy for retreatment (dilation) after review of bio psies and medical treatment if this does not resolve her dysphagia. Attending Participation: I personally performed the entire procedure without the assistance of a fellow, resident or surg ical inventory control assistant. Isaac Arevalo MD Isaac Arevalo MD 07/07/2018 11:18:56 AM This report has been signed electronicallyDavid MD Irina Number of Addenda: 0 Note Initiated On: 07/07/2018 10:42 AM [email or web address]
[2018-07-07 12:04] VITALS: BP 144/91
--- NOTE | 2018-07-07 15:22 | POSTANESTH ---
Post Anesthetic Evaluation Cardiovascular Status: Normal, Stable Respiratory Status: Normal, Stable Level of Consciousness/Mental Status: Can Participate in Eval Pain Control: Adequate, Prn Tx Ordered Nausea/Vomiting Control: Adequate, Prn Tx Ordered Complications Possibly Related to Anesthesia: None Noted (seen prior to dc. no questions or complaints)
== END 2018-07-07 12:04 | disposition home or self-care (01) ==
LOC: FSGY 09:06
PROVIDERS: ATTEND Internal Medicine Gastroenterology
DX: B37.81 Candidal esophagitis (principal); R13.10 Dysphagia, unspecified; R10.84 Generalized abdominal pain; K31.89 Other diseases of stomach and duodenum; K21.9 Gastro-esophageal reflux disease without esophagitis; G61.81 Chronic inflammatory demyelinating polyneuritis; E78.5 Hyperlipidemia, unspecified; I10 Essential (primary) hypertension; Z86.010 Personal history of colon polyps; Z98.1 Arthrodesis status
CPT/HCPCS: J2704; J3010